=== PATIENT | female | born 1980 | race Two or more races ===

== ENCOUNTER 2025-04-23 02:29 | Inpatient (IN) | payer BC, OTHER ==
[~2025-04-23] VITALS: Ht 167.6 cm; Wt 83.7 kg
--- NOTE | 2025-04-23 02:48 | ED.PDOC ---
GI ASSESSMENT HPI Comments 44-year-old female complains of right-sided abdominal pain for the last 4 hours. Patient was drinking some alcohol and watching football. Patient has a history of cholecystectomy. The pain is dull and achy. No known modifying factors. Time Seen by MD: 02:38 Reviewed Notes: Nurses Notes, Multi Operation Machine Operator Notes Allergies: Coded Allergies: NO KNOWN ALLERGIES (Unverified , 04/23/25) Information Source: Patient, Emergency Med Personnel Mode of Arrival: EMS Duration: Since onset Quality: Aching Past Medical History PAST MEDICAL HISTORY: Denies Surgical History: Cholecystectomy Social History Smoker: Non-Smoker Alcohol: Heavy Drugs: Denies Drug Use Constitutional: reports: malaise Gastrointestinal: reports: abdominal pain, nausea All Other Systems: Reviewed and Negative Physical Exam Exam Comments Smells of alcohol General Appearance: Mild Distress HEENT: Normal ENT Inspection, Pharynx Normal, TMs Normal Neck: Full Range of Motion, Non-Tender, Normal, Normal Inspection Respiratory: Chest Non-Tender, Lungs Clear, No Accessory Muscle Use, No Respiratory Distress, Normal Breath Sounds Cardiovascular: No Edema, No JVD, No Murmur, No Gallop, Normal Peripheral Pulses, Regular Rate/Rhythm Breast Exam: Deferred Gastrointestinal: RLQ, RUQ, Tenderness Genitalia: Deferred Pelvic: Deferred Rectal: Deferred Extremities: No calf tenderness, Normal capillary refill, Normal inspection, Normal range of motion, Non-tender, No pedal edema Musculoskeletal : Apperance: Normal Neurologic: Alert, 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 Was a procedure done?: No GI differential Dx Differential Diagnosis: Appendicitis, Bowel Obstruction, Diverticular disease, Gastritis/PUD, Gastroenteritis, GI hemorrhage, Kidney Stone, Other X-Ray, Labs, Meds, VS Vital Signs Date Time Temp Pulse Resp B/P (MAP) Pulse Ox O2 Delivery O2 Flow Rate FiO2 04/23/25 02:29 97.6 84 18 124/74 100 97.6 Lab Test 04/23/25 03:18 Range/Units White Blood Count 9.0 4.4-10.8 10^3/uL Red Blood Count 4.28 4.0-5.20 10^6/uL Hemoglobin 8.2 L 12.2-16.2 g/dL Hematocrit 27.1 L 36.0-46.0 % Mean Corpuscular Volume 63.3 L 80.0-100.0 fL Mean Corpuscular Hemoglobin 19.1 L 28.0-32.0 pg Mean Corpuscular Hemoglobin Concent 30.2 L 32.0-36.0 g/dL Red Cell Distribution Width 17.8 H 11.8-14.3 % Platelet Count 272 140-450 10^3/uL Mean Platelet Volume 7.4 6.9-10.8 fL Neutrophils (%) (Auto) 81.2 H 37.0-80.0 % Lymphocytes (%) (Auto) 10.7 10.0-50.0 % Monocytes (%) (Auto) 5.1 0.0-12.0 % Eosinophils (%) (Auto) 2.3 0.0-7.0 % Basophils (%) (Auto) 0.7 0.0-2.0 % Neutrophils # (Auto) 7.3 1.6-8.6 10 ^3/uL Lymphocytes # (Auto) 1.0 0.4-5.4 10 ^3/uL Monocytes # (Auto) 0.5 0-1.3 10 ^3/uL Eosinophils # (Auto) 0.2 0-0.8 10 ^3/uL Basophils # (Auto) 0.1 0-0.2 10 ^3/uL Nucleated Red Blood Cells 0.0 % Sodium Level 145 136-145 mmol/L Potassium Level 3.5 3.5-5.1 mmol/L Chloride Level 112 H 98-107 mmol/L Carbon Dioxide Level 20 20-31 mmol/L Anion Gap 13 5-15 Blood Urea Nitrogen 5 L 9-23 mg/dL Creatinine 0.58 0.550-1.02 mg/dL Glomerular Filtration Rate Calc 115 >90 mL/min BUN/Creatinine Ratio 8.6 L 10.0-20.0 Serum Glucose 98 74-106 mg/dL Calcium Level 8.4 L 8.7-10.4 mg/dL Total Bilirubin 0.3 0.2-1.0 mg/dL Aspartate Amino Transferase (AST) 78 H 13-40 U/L Alanine Aminotransferase (ALT) 34 7-40 U/L Alkaline Phosphatase 73 46-116 U/L Total Protein 7.8 5.7-8.2 g/dL Albumin 4.4 3.2-4.8 g/dL Lipase 26 12-53 U/L Plasma/Serum Blood Alcohol 229.0 H <10 mg/dL [address] [address] Ph: [phone] DIAGNOSTIC IMAGING Diagnostic Imaging Report : [id number] Signed PATIENT: COLUMBA MALCOLM ACCT: [id number] UNIT: [id number] : 1980 LOC: ER ROOM / BED: / AGE / SEX: 44 / F ADM STATUS: REG ER SERVICE [id number] ORDERING PHYSICIAN: ALLYSON PRESTON MD PROCEDURE(s): ABPLIV - CT AB PEL WITH IV CON ONLY REASON: RLQ pain ORDER NUMBER(s): [id number], ACCESSION NUMBER(s): [id number] Exam: CT CT AB PEL WITH IV CON ONLY History: RLQ pain COMPARISON: ABPELC on DOS: 04/23/22 Technique: Multidetector spiral CT of the abdomen and pelvis was performed from lung bases to pubic symphysis. Intravenous contrast was administered during this examination. Portal venous imaging was obtained. Axial, coronal and sagittal multiplanar reformats were performed by the technologist on a separate workstation. Radiation Dose : 1. Abdomen/Pelvis: CTDIvol 22.07 mGy, DLP 1413.7 mGy*cm. CONTRAST: Type of contrast: Omnipaque 300 Contrast injected: 100 ml Findings: Lung Bases: No acute or significant lung base finding. Cardiomegaly. No pleural or pericardial effusion. Liver: The liver is normal in size. No focal lesions. Normal hepatic vascular enhancement. Gallbladder and Biliary Tree: Status post cholecystectomy. Spleen: Unremarkable Pancreas: The pancreas is normal in appearance without focal lesions or abnormal enhancement. Adrenal Glands: Unremarkable Kidneys: No hydronephrosis. Bladder: Unremarkable Bowel: Small sliding-type hiatal hernia. The stomach is grossly normal in appearance. Diverticulosis coli without CT evidence of acute diverticulitis. Retained colorectal stool. Small bowel and colon are otherwise normal in caliber and distribution. The appendix is normal. Ascites: Absent Lymphadenopathy: No mesenteric, retroperitoneal or periportal lymphadenopathy. Abdominal Wall and Mesentery: Unremarkable. Vasculature: The visualized abdominal aorta is normal in size and caliber. Abdominal and pelvic vessels demonstrate normal enhancement. Pelvic Organs: Complex appearing bilateral adnexal cystic near water attenuation structures measure 5.2 x 3.6 cm on the right and 4.1 x 2.7 cm on the left. Trace likely physiologic endometrial fluid. Musculoskeletal: No aggressive focal bony lesions, acute fractures or dislocation. IMPRESSION: 1. No acute abdominal or pelvic finding. 2. Complex appearing bilateral adnexal cystic near water attenuation structures measure 5.2 x 3.6 cm on the right and 4.1 x 2.7 cm on the left. Further evaluation with pelvic ultrasound is recommended. 3. Diverticulosis coli without CT evidence of acute diverticulitis. 4. Retained colorectal stool. Radiation optimization: All CT scans at this facility use at least one of these dose optimization techniques: automated exposure control mA and/or kV adjustment per patient size (includes targeted exams where dose is matched to clinical indication) or iterative reconstruction. ATED BY: ALIREZA SMITH MD DICTATED DATE/TIME: 04/23/25525 SIGNED BY: ALIREZA SMITH MD SIGNED DATE/TIME: 04/23/25525 CC: Time of 1ST Reevaluation: 02:47 Reevaluation 1ST: Unchanged Patient Education/Counseling: Diagnosis, Treatment Family Education/Counseling: No Family Present SEPSIS Sepsis Screen Physician Orders Urinalysis (04/23/25 02:41) Ct Ab Pel With Iv Con Only (04/23/25 02:41) Urine (04/23/25 ) Pelvic (04/23/25 05:49) Vital Signs Date Time Temp Pulse Resp B/P (MAP) Pulse Ox O2 Delivery O2 Flow Rate FiO2 04/23/25 02:29 97.6 84 18 124/74 100 97.6 Laboratory Tests Test 04/23/25 03:18 White Blood Count 9.0 10^3/uL (4.4-10.8) Departure 1 Departure Time of Disposition: 05:50 Impression: Primary Impression: Bilateral ovarian cysts Additional Impressions: Dysfunctional uterine bleeding Alcohol intoxication Symptomatic anemia Disposition: ADMITTED INPATIENT Admit to: Med Surg Condition: Guarded Comments 44-year-old female with abdominal pain. Patient has large bilateral ovarian cysts on CT. She is quite anemic. She is not actively bleeding. Patient admits to drinking alcohol in her alcohol level is high. I ordered IV fluids and pain medication. Patient will need to be admitted for further testing and possible OBGYN consultation. Critical Care Note Critical Care Time?: No Stability Stability form required: No Heart Score Heart Score: Heart Score Response (Comments) Value History N/A 0 EKG N/A 0 Age N/A 0 Risk Factors N/A 0 Troponin N/A 0 Total 0 I personally scribed for ALLYSON PRESTON MD ([email or web address]) on 04/23/25 at 05:33. Electronically submitted by Jorge Mendez ([email or web address]). ALLYSON PRESTON MD Apr 23, 2025 02:48
[2025-04-23 04:00] LABS: Alanine Aminotransferase 34 U/L (7-40); Albumin 4.4 g/dL (3.2-4.8); Alkaline Phosphatase 73 U/L (46-116); Anion Gap 13 (5-15); Carbon Dioxide 20 mmol/L (20-31); Glucose 98 mg/dL (74-106); Lipase 26 U/L (12-53); Sodium 145 mmol/L (136-145); Total Protein 7.8 g/dL (5.7-8.2)
[2025-04-23 04:04] LABS: Hemoglobin 8.2 g/dL (12.2-16.2); Nucleated Red Blood Cells % 0.0 %
[2025-04-23 04:06] LABS: Hematocrit 27.1 % (36.0-46.0); Mean Corpuscular Hemoglobin 19.1 pg (28.0-32.0); Mean Corpuscular Volume 63.3 fL (80.0-100.0)
[2025-04-23 04:11] LABS: BUN/Creatinine Ratio 8.6 (10.0-20.0)
[2025-04-23 04:13] LABS: Bilirubin, Total 0.3 mg/dL (0.2-1.0); Blood Urea Nitrogen 5 mg/dL (9-23); Calcium 8.4 mg/dL (8.7-10.4); Chloride 112 mmol/L (98-107); Potassium 3.5 mmol/L (3.5-5.1)
--- NOTE | 2025-04-23 05:29 | DVH ---
Exam: CT CT AB PEL WITH IV CON ONLY History: RLQ pain COMPARISON: ABPELC on DOS: 04/23/22 Technique: Multidetector spiral CT of the abdomen and pelvis was performed from lung bases to pubic s ymphysis. Intravenous contrast was administered during this examination. Portal venous imaging was o btained. Axial, coronal and sagittal multiplanar reformats were performed by the technologist on a [employer] workstation. Radiation Dose : 1. Abdomen/Pelvis: CTDIvol 22.07 mGy, DLP 1413.7 mGy*cm. CONTRAST: Type of contrast: Omnipaque 300 Contrast injected: 100 ml Findings: Lung Bases: No acute or significant lung base finding. Cardiomegaly. No pleural or pericardial effus ion. Liver: The liver is normal in size. No focal lesions. Normal hepatic vascular enhancement. Gallbladder and Biliary Tree: Status post cholecystectomy. Spleen: Unremarkable Pancreas: The pancreas is normal in appearance without focal lesions or abnormal enhancement. Adrenal Glands: Unremarkable Kidneys: No hydronephrosis. Bladder: Unremarkable Bowel: Small sliding-type hiatal hernia. The stomach is grossly normal in appearance. Diverticulosis coli without CT evidence of acute diverticulitis. Retained colorectal stool. Small bowel and colon a re otherwise normal in caliber and distribution. The appendix is normal. Ascites: Absent Lymphadenopathy: No mesenteric, retroperitoneal or periportal lymphadenopathy. Abdominal Wall and Mesentery: Unremarkable. Vasculature: The visualized abdominal aorta is normal in size and caliber. Abdominal and pelvic vess els demonstrate normal enhancement. Pelvic Organs: Complex appearing bilateral adnexal cystic near water attenuation structures measure 5 .2 x 3.6 cm on the right and 4.1 x 2.7 cm on the left. Trace likely physiologic endometrial fluid. Musculoskeletal: No aggressive focal bony lesions, acute fractures or dislocation. IMPRESSION: 1. No acute abdominal or pelvic finding. 2. Complex appearing bilateral adnexal cystic near water attenuation structures measure 5.2 x 3.6 cm on the right and 4.1 x 2.7 cm on the left. Further evaluation with pelvic ultrasound is recommended. 3. Diverticulosis coli without CT evidence of acute diverticulitis. 4. Retained colorectal stool. Radiation optimization: All CT scans at this facility use at least one of these dose optimization marc hniques: automated exposure control mA and/or kV adjustment per patient size (includes targeted exam s where dose is matched to clinical indication) or iterative reconstruction.
--- NOTE | 2025-04-23 08:02 | DVH ---
CLINICAL HISTORY: Abdominal pain. Ovarian cysts. COMPARISON:CT CT AB PEL WITH IV CON ONLY on DOS: 04/23/25 TECHNIQUE: Transabdominal grayscale sonographic imaging of the uterus and ovaries was performed, assi sted by color Doppler technique. Duplex Doppler ultrasound of both ovaries was also performed. FINDINGS: The uterus measures 14.1 x 5.1 x 7.6 cm. There is mildly heterogeneous echogenicity. Endome trial thickness measures 0.6 cm, within normal limits. Anechoic structure in the cervix measures up t o 1.4 cm, possible nabothian cyst. Right ovary measures 6.6 x 5.5 x 5.4 cm. Arterial and venous blood flow demonstrated. Mildly complex cystic structure in the right ovary measures up to 5.2 cm, possible complex ovarian cyst. Left ovary measures 4.8 x 2.3 x 4.3 cm. Arterial and venous blood flow demonstrated. Possible mildly complex cyst in the left ovary measuring up to 2.4 cm. IMPRESSION: 1. Suspected complex cystic structures in both ovaries, right greater than left, may be hemorrhagic c ysts. Correlate with clinical findings. Per consensus statement of the society of radiologists in ult rasound, for hemorrhagic cysts greater than 5 cm, short interval follow-up ultrasound in 6-12 weeks r ecommended to ensure resolution. 2. Likely nabothian cyst in the cervix.
[2025-04-23] MEDS ORDERED: ONDANSETRON HCL 4 MG/2 ML VIAL IV PRN (08:30)
[2025-04-23] MEDS ORDERED: DOCUSATE SOD 100 MG CAP PO PRN (08:30)
--- NOTE | 2025-04-23 08:44 | DVHHP2 ---
History of Present Illness Reason for Visit: Abdominal pain History of Present Illness Norma Yoon i s a 44-year-old female with no significant past medical history, who came to the hospital for abdominal pain. Patient states she has been experiencing intermittent abdominal pain for about 2 weeks. Last night she was watching football and drinking with her when the pain began. She states it became so severe she had her call EMS. She states she only drinks about once a week, but has noticed her pain is worse with drinking. Labs revealed patient is anemic. She states she has had to have blood transfusions in the past. She needed blood transfusions with her last 3 C-Sections, and when she had her cholecystectomy. Imaging showed bilateral ovarian cysts, possible hemorrhagic. Heme/Onc: Anemia NOS Past Surgical History: Cholecystectomy, (x 6) Smoke: No ALCOHOL: occassional Drugs: None Lives: with Family Domestic Violence: Neg Review of Systems Constitutional: No: Fever, Chills, Sweats, Weakness, Malaise, Other Eyes: No: Pain, Vision change, Conjunctivae inflammation, Eyelid inflammation, Other, Redness ENT: No: Ear pain, Ear discharge, Nose pain, Nose discharge, Nose congestion, Mouth pain, Mouth swelling, Throat pain, Throat swelling, Other Respiratory: No: Cough, Dry, Shortness of breath, SOB with excertion, Wheezing, Hemoptysis, Pleuritic Pain, Sputum, Wheezing, Other Cardiovascular: No: Chest Pain, Palpitations, Orthopnea, Paroxysmal Noc. Dyspnea, Edema, Lt Headedness, Other Gastrointestinal: Nausea, Abdominal Pain; No: Vomiting, Diarrhea, Constipation, Melena, Hematochezia, Other Genitourinary: No Dysuria, No Frequency, No Incontinence, No Hematuria, No Retention, No Other Musculoskeletal: No: other, neck pain, shoulder pain, arm pain, back pain, hand pain, leg pain, foot pain Skin: No: Rash, Lesions, Jaundice, Bruising, Other Neurological: No: Weakness, Numbness, Incoordination, Change in speech, Confusion, Seizures, Other Allergies: Coded Allergies: Codeine (Verified Allergy, Unknown, 04/23/25) Medications Current Medications Medications Dose Ordered Sig/Mariusz Route Start Time Stop Time Status Last Admin Dose Admin Acetaminophen/ Hydrocodone Bitart 1 tab Q4HP PRN PO 04/23/25 08:30 UNV Ondansetron HCl 4 mg Q4HP PRN IV 04/23/25 08:30 UNV Docusate Sodium 100 mg BIDPRN PRN PO 04/23/25 08:30 UNV Acetaminophen 650 mg Q6HP PRN PO 04/23/25 08:30 UNV Exam Vital Signs Vital Signs Date Time Temp Pulse Resp B/P (MAP) Pulse Ox O2 Delivery O2 Flow Rate FiO2 04/23/25 02:29 97.6 84 18 124/74 100 97.6 General Appearance: Alert, Oriented X3, Cooperative, moderate distress HEENT: Atraumatic, PERRLA Respiratory: Clear to auscultation, Normal air movement Cardiovascular: Regular rate, Normal S1, Normal S2 Abdominal: Normal bowel sounds, Soft, Other (tenderness on palpitation) Extremities: No clubbing, No cyanosis, No edema, Normal pulses Skin: No rashes, No breakdown, No significant lesion Neuro: Normal gait, Normal speech, Strength at 5/5 X4 ext, Normal tone Psych/Mental Status: Mental status NL, Mood NL Labs/Xrays Labs Test 04/23/25 03:18 Range/Units White Blood Count 9.0 4.4-10.8 10^3/uL Red Blood Count 4.28 4.0-5.20 10^6/uL Hemoglobin 8.2 L 12.2-16.2 g/dL Hematocrit 27.1 L 36.0-46.0 % Mean Corpuscular Volume 63.3 L 80.0-100.0 fL Mean Corpuscular Hemoglobin 19.1 L 28.0-32.0 pg Mean Corpuscular Hemoglobin Concent 30.2 L 32.0-36.0 g/dL Red Cell Distribution Width 17.8 H 11.8-14.3 % Platelet Count 272 140-450 10^3/uL Mean Platelet Volume 7.4 6.9-10.8 fL Neutrophils (%) (Auto) 81.2 H 37.0-80.0 % Lymphocytes (%) (Auto) 10.7 10.0-50.0 % Monocytes (%) (Auto) 5.1 0.0-12.0 % Eosinophils (%) (Auto) 2.3 0.0-7.0 % Basophils (%) (Auto) 0.7 0.0-2.0 % Neutrophils # (Auto) 7.3 1.6-8.6 10 ^3/uL Lymphocytes # (Auto) 1.0 0.4-5.4 10 ^3/uL Monocytes # (Auto) 0.5 0-1.3 10 ^3/uL Eosinophils # (Auto) 0.2 0-0.8 10 ^3/uL Basophils # (Auto) 0.1 0-0.2 10 ^3/uL Nucleated Red Blood Cells 0.0 % Sodium Level 145 136-145 mmol/L Potassium Level 3.5 3.5-5.1 mmol/L Chloride Level 112 H 98-107 mmol/L Carbon Dioxide Level 20 20-31 mmol/L Anion Gap 13 5-15 Blood Urea Nitrogen 5 L 9-23 mg/dL Creatinine 0.58 0.550-1.02 mg/dL Glomerular Filtration Rate Calc 115 >90 mL/min BUN/Creatinine Ratio 8.6 L 10.0-20.0 Serum Glucose 98 74-106 mg/dL Calcium Level 8.4 L 8.7-10.4 mg/dL Total Bilirubin 0.3 0.2-1.0 mg/dL Aspartate Amino Transferase (AST) 78 H 13-40 U/L Alanine Aminotransferase (ALT) 34 7-40 U/L Alkaline Phosphatase 73 46-116 U/L Total Protein 7.8 5.7-8.2 g/dL Albumin 4.4 3.2-4.8 g/dL Lipase 26 12-53 U/L Plasma/Serum Blood Alcohol 229.0 H <10 mg/dL Exam: CT CT AB PEL WITH IV CON ONLY Findings: Lung Bases: No acute or significant lung base finding. Cardiomegaly. No pleural or pericardial effusion. Liver: The liver is normal in size. No focal lesions. Normal hepatic vascular enhancement. Gallbladder and Biliary Tree: Status post cholecystectomy. Spleen: Unremarkable Pancreas: The pancreas is normal in appearance without focal lesions or abnormal enhancement. Adrenal Glands: Unremarkable Kidneys: No hydronephrosis. Bladder: Unremarkable Bowel: Small sliding-type hiatal hernia. The stomach is grossly normal in appearance. Diverticulosis coli without CT evidence of acute diverticulitis. R etained colorectal stool. Small bowel and colon are otherwise normal in caliber and distribution. The appendix is normal. Ascites: Absent Lymphadenopathy: No mesenteric, retroperitoneal or periportal lymphadenopathy. Abdominal Wall and Mesentery: Unremarkable. Vasculature: The visualized abdominal aorta is normal in size and caliber. Abdominal and pelvic vessels demonstrate normal enhancement. Pelvic Organs: Complex appearing bilateral adnexal cystic near water attenuation structures measure 5.2 x 3.6 cm on the right and 4.1 x 2.7 cm on the left. Trace likely physiologic endometrial fluid. Musculoskeletal: No aggressive focal bony lesions, acute fractures or dislocation. IMPRESSION: 1. No acute abdominal or pelvic finding. 2. Complex appearing bilateral adnexal cystic near water attenuation structures measure 5.2 x 3.6 cm on the right and 4.1 x 2.7 cm on the left. Further evaluation with pelvic ultrasound is recommended. 3. Diverticulosis coli without CT evidence of acute diverticulitis. 4. Retained colorectal stool. TECHNIQUE: Transabdominal grayscale sonographic imaging of the uterus and ovarie s was performed, assisted by color Doppler technique. Duplex Doppler ultrasound of both ovaries was also performed. FINDINGS: The uterus measures 14.1 x 5.1 x 7.6 cm. There is mildly heterogeneous echogenicity. Endometrial thickness measures 0.6 cm, within normal limits. Anechoic structure in the cervix measures up to 1.4 cm, possible nabothian cyst. Right ovary measures 6.6 x 5.5 x 5.4 cm. Arterial and venous blood flow demonstrated. Mildly complex cystic structure in the right ovary measures up to 5.2 cm, possible complex ovarian cyst. Left ovary measures 4.8 x 2.3 x 4.3 cm. Arterial and venous blood flow demon strated. Possible mildly complex cyst in the left ovary measuring up to 2.4 cm. IMPRESSION: 1. Suspected complex cystic structures in both ovaries, right greater than left, may be hemorrhagic cysts. Correlate with clinical findings. Per consensus state ment of the society of radiologists in ultrasound, for hemorrhagic cysts greater than 5 cm, short interval follow-up ultrasound in 6-12 weeks recommended to ensure resolution. 2. Likely nabothian cyst in the cervix. SEPSIS Sepsis Screen Date sepsis recognized/suspect: Apr 23, 2025 Time Sepsis recognized/suspect: 228 Recent Procedure: No On Antibiotic Therapy: No Respiratory Rate >20: No Heart Rate >90: No Temp<36 C (96.8 F) or >38.3 C: No SBP <90 or MAP <65 mmHG: No New Acute Mental Status Change: No Is the patient on CPAP, BIPAP,: No Physician Orders Urinalysis (04/23/25 02:41) Ct Ab Pel With Iv Con Only (04/23/25 02:41) Urine (04/23/25 ) Pelvic (04/23/25 05:49) Admit (04/23/25 08:29) Code Status (04/23/25 08:29) Hydrocodone-Acet 5/325mg Tab ([place] 5/32 (04/23/25 08:30) Ondansetron Hcl (Zofran) (04/23/25 08:30) Docusate Sodium Capsule (Colace Capsule) (04/23/25 08:30) Complete Blood Count (04/24/25 04:00) Comprehensive Metabolic Panel (04/24/25 04:00) Condition: Serious (04/23/25 08:29) Acetaminophen Tablet (Tylenol Tablet) (04/23/25 08:30) Regular Diet (04/23/25 Breakfast) Vital Signs Date Time Temp Pulse Resp B/P (MAP) Pulse Ox O2 Delivery O2 Flow Rate FiO2 04/23/25 02:29 97.6 84 18 124/74 100 97.6 Laboratory Tests Test 04/23/25 03:18 White Blood Count 9.0 10^3/uL (4.4-10.8) Assessment/Plan Assessment/Plan Assessment: Bilateral ovarian cysts, Anemia, ETOH abuse, Transaminitis, Plan: Admit to Med-Surg, HIDE EXAMINER consult, Iron panel, Ferritin, PT/PTT, Reticulocyte, Vit B12, PO supplements for possible ETOH withdrawal, Liver ultrasound, Manage/Monitor H&H closely, Start PO iron, Plan discussed with: Patient My Orders Orders - MARTELL BUTTERFIELDP Procedure Category Date Status Time Admit ADMIT 04/23/25 Transmitted 08:29 Code Status CODE 04/23/25 Transmitted 08:29 Hydrocodone-Acet PHA 04/23/25 Logged 5/325mg Tab ([place] 08:30 Ondansetron Hcl PHA 04/23/25 Logged (Zofran) 08:30 Docusate Sodium PHA 04/23/25 Logged Capsule (Colace 08:30 Complete Blood Count LAB 04/24/25 Verified 04:00 Comprehensive LAB 04/24/25 Verified Metabolic Panel 04:00 Condition: Serious ELIO 04/23/25 In Process 08:29 Acetaminophen Tablet PHA 04/23/25 Logged (Tylenol Tablet) 08:30 Regular Diet DIET 04/23/25 Transmitted Breakfast Date of Service: Apr 23, 2025 Billing Provider: MARTELL BUTTERFIELD Common Visit Codes: [id number] INP/OBS CARE (MOD) MARTELL BUTTERFIELD Apr 23, 2025 08:44
[2025-04-23] MEDS: HYDROcodone-ACET 5/325MG TAB PO PRN (09:54)
[2025-04-23] MEDS: SODIUM CHLORIDE 0.9% 1,000 ML IVB ONE (09:54)
[2025-04-23 09:59] VITALS: RESP 18; O2SAT 99
[2025-04-23 11:53] LABS: INR 1.07 (0.9-1.15); Partial Thromboplastin Time 23.1 SEC (24.5-34.5); Prothrombin Time 11.3 sec (9.3-11.8)
[2025-04-23 12:14] LABS: Iron 12.0 ug/dL (50-170)
[2025-04-23 12:15] LABS: Total Iron Binding Capacity 417.0 ug/dL (250-425)
--- NOTE | 2025-04-23 12:47 | DVH ---
INDICATION: Transaminitis TECHNIQUE: Multiple real-time sonographic images were obtained of the right upper quadrant. COMPARISON: US PELVIC on DOS: 04/23/25, GBUS on DOS: 04/22/22 FINDINGS: The liver demonstrates heterogenous echotexture without focal mass lesions. The liver measu res 14 cm. There is no intrahepatic or extrahepatic ductal dilatation. The common duct measures 0. 5 mm. Status post cholecystectomy. The right kidney measures 11 cm. The right kidney is normal in contour, size, and shape. The echog enicity is normal. There is no hydronephrosis. The pancreas is not well visualized due to overlying bowel gas. IMPRESSION: Hepatic steatosis
[2025-04-23 13:00] VITALS: BP 112/61; PULSE 84; RESP 12; TEMP 98.4; O2SAT 99
[2025-04-23] MEDS: SODIUM CHLORIDE 0.9% 1,000 ML IV ONE (13:26)
[2025-04-23] MEDS: MULTIPLE VITAMINS W/ MINERALS TAB PO ONE (13:31)
[2025-04-23] MEDS: FOLIC ACID 1 MG TAB PO ONE (13:31)
[2025-04-23] MEDS: THIAMINE HCL 100 MG TAB PO ONE (13:31)
[2025-04-23 17:00] VITALS: BP 117/59; PULSE 70; TEMP 98; O2SAT 98
[2025-04-23] MEDS: FERROUS SULFATE 325mg EC TAB PO SCH (18:33)
[2025-04-23 19:32] LABS: Urine Protein, UAD Negative (Negative)
[2025-04-24] VITALS (7 sets, daily range): BP systolic 104–123; BP diastolic 58–75; PULSE 57–66; RESP 16–20; TEMP 97.9–98.6; O2SAT 96–99
[2025-04-24 06:00] LABS: Nucleated Red Blood Cells % 0.0 %
[2025-04-24 06:03] LABS: Hematocrit 23.4 % (36.0-46.0); Mean Corpuscular Hemoglobin 19.0 pg (28.0-32.0); Mean Corpuscular Volume 64.0 fL (80.0-100.0)
[2025-04-24 06:10] LABS: Hemoglobin 7.0 g/dL (12.2-16.2)
[2025-04-24 06:23] LABS: Alanine Aminotransferase 21 U/L (7-40); Albumin 3.7 g/dL (3.2-4.8); Alkaline Phosphatase 66 U/L (46-116); Anion Gap 8 (5-15); BUN/Creatinine Ratio 13.0 (10.0-20.0); Bilirubin, Total 0.6 mg/dL (0.2-1.0); Carbon Dioxide 25 mmol/L (20-31); Glucose 93 mg/dL (74-106); Sodium 141 mmol/L (136-145); Total Protein 6.5 g/dL (5.7-8.2)
[2025-04-24 06:28] LABS: Blood Urea Nitrogen 7 mg/dL (9-23); Calcium 8.6 mg/dL (8.7-10.4); Chloride 108 mmol/L (98-107); Potassium 3.5 mmol/L (3.5-5.1)
[2025-04-24 08:23] LABS: Hemoglobin 7.1 g/dL (12.2-16.2)
[2025-04-24 08:25] LABS: Hematocrit 23.9 % (36.0-46.0)
[2025-04-24] MEDS: ACETAMINOPHEN 325 MG TAB PO PRN (08:46)
[2025-04-24] MEDS: MULTIPLE VITAMINS W/ MINERALS TAB PO SCH (10:54)
[2025-04-24] MEDS: DOCUSATE SOD 100 MG CAP PO SCH (10:54)
[2025-04-24] MEDS: FOLIC ACID 1 MG TAB PO SCH (10:54)
[2025-04-24] MEDS: THIAMINE HCL 100 MG TAB PO SCH (10:57)
--- NOTE | 2025-04-24 12:58 | DVHPN2 ---
Reviewed: H&P Changes from previous H/P or p: No Changes General: Per HPI Eyes: No Pain, No Vision change, No Conjunctivae inflammation, No Eyelid inflammation, No Other, No Redness ENT: No Ear pain, No Ear discharge, No Nose pain, No Nose discharge, No Nose congestion, No Mouth pain, No Mouth swelling, No Throat pain, No Throat swelling, No Other Cardiovascular: No Chest Pain, No Palpitations, No Orthopnea, No Paroxysmal Noc. Dyspnea, No Edema, No Lt Headedness, No Other Respiratory: No Cough, No Dry, No Shortness of breath, No SOB with excertion, No Wheezing, No Hemoptysis, No Pleuritic Pain, No Sputum, No Other Gastrointestinal: Nausea; No Vomiting; Abdominal Pain; No Diarrhea, No Constipation, No Melena, No Hematochezia, No Other Genitourinary: No Dysuria, No Frequency, No Incontinence, No Hematuria, No Retention, No Other Musculoskeletal: No other, No neck pain, No shoulder pain, No arm pain, No back pain, No hand pain, No leg pain, No foot pain Skin: No Rash, No Lesions, No Jaundice, No Bruising, No Other Objective Vitals Vital Signs Date Time Temp Pulse Resp B/P (MAP) Pulse Ox O2 Delivery O2 Flow Rate FiO2 04/24/25 09:00 98.6 57 16 107/70 (82) 97 98.6 04/23/25 16:10 Room Air* 0 21 Intake/Output Intake and Output 04/24/25 07:00 Intake Total 240 ml Balance 240 ml Intake Oral 240 ml # Voids 2 Exam General Appearance: Alert, Oriented X3, Cooperative, moderate distress HEENT: Atraumatic, PERRLA Respiratory: Clear to auscultation, Normal air movement Cardiovascular: Regular rate, Normal S1, Normal S2 Abdominal: Normal bowel sounds, Soft, Other (tenderness on palpitation) Extremities: No clubbing, No cyanosis, No edema, Normal pulses Skin: No rashes, No breakdown, No significant lesion Neuro: Normal gait, Normal speech, Strength at 5/5 X4 ext, Normal tone Psych/Mental Status: Mental status NL, Mood NL Medications Current Medications Medications Dose Ordered Sig/Mariusz Route Start Time Stop Time Status Last Admin Dose Admin Acetaminophen/ Hydrocodone Bitart 1 tab Q4HP PRN PO 04/23/25 08:30 04/23/25 09:54 1 TAB Ondansetron HCl 4 mg Q4HP PRN IV 04/23/25 08:30 Acetaminophen 650 mg Q6HP PRN PO 04/23/25 08:30 04/24/25 08:46 650 MG Thiamine HCl 100 mg DAILY PO 04/24/25 10:00 04/24/25 10:57 100 MG Folic Acid 1 mg DAILY PO 04/24/25 10:00 04/24/25 10:54 1 MG Multivitamins/ Minerals 1 tab DAILY PO 04/24/25 10:00 04/24/25 10:54 1 TAB Docusate Sodium 100 mg DAILY PO 04/24/25 10:00 04/24/25 10:54 100 MG Ferrous Sulfate 325 mg BIDWM PO 04/23/25 18:00 04/24/25 08:38 325 MG Laboratory Results Laboratory Tests 04/24/25 05:34 04/24/25 07:46 Chemistry Test 04/24/25 05:34 Albumin 3.7 g/dL (3.2-4.8) Calcium Level 8.6 mg/dL (8.7-10.4) L Total Protein 6.5 g/dL (5.7-8.2) LFT Test 04/24/25 05:34 Alanine Aminotransferase (ALT) 21 U/L (7-40) Alkaline Phosphatase 66 U/L (46-116) Aspartate Amino Transferase (AST) 20 U/L (13-40) Total Bilirubin 0.6 mg/dL (0.2-1.0) Urinalysis Test 04/23/25 18:02 Urine Color Light-yellow (Yellow) Urine Clarity Clear (Clear) Urine pH 6.5 (5.0-9.0) Urine Specific [place] 1.039 (1.001-1.035) Urine Protein Negative (Negative) Urine Ketones 1+ (Negative) H Urine Blood Negative /uL (Negative) Urine Nitrite Negative (Negative) Urine Bilirubin Negative (Negative) Urine Urobilinogen Normal mg/dL (Negative) Urine Leukocyte Esterase Negative /uL (Negative) Urine RBC 1 /hpf (0 - 4) Urine Microscopic WBC 1 /HPF (0-5) Urine Squamous Epithelial Cells Few /hpf (<5) Urine Bacteria None seen /hpf (None Seen) Urine Mucus Few (None Seen) Urine Glucose Normal mg/dL (Normal) Labs and/or images reviewed: Labs reviewed by me, Image(s) reviewed by me Assessment/Plan Assessment/Plan 44-year-old female with no significant past medical history, who came to the hospital for abdominal pain. Patient states she has been experiencing intermittent abdominal pain for about 2 weeks. Last night she was watching football and drinking with her when the pain began. She states it became so severe she had her call EMS. She states she only drinks about once a week, but has noticed her pain is worse with drinking. Labs revealed patient is anemic. She states she has had to have blood transfusions in the past. She needed blood transfusions with her last 3 C-Sections, and when she had her cholecystectomy. Imaging showed bilateral ovarian cysts, possible hemorrhagic. 04/24: CT with diverticulosis, and some complex bilateral adnexal cystic masses. The right Urology complex mass measuring 5 x 3.5, left measuring 4 x 3, , approximately., CT also with retained colorectal stool. Ultrasound repeated showing possible concern for hemorrhagic cysts. Gynecology is consulted. Continuing pain control prn analgesia. Anemia workup showing iron-deficiency anemia Patient has tenderness to adnexal region right more than left. For pain we will do Tylenol 1st line, second-line tramadol, 3rd line we will start celecoxib as we are not ruled out GI cause of bleed. We will get stool occult blood. Repeat hemoglobin q.12. Pending Gynecology final recommendations.. Diagnosis: Severe anemia , iron dysuria anemia, likely menses and/or ovarian cyst Acute blood loss anemia Bilateral ovarian cysts, Anemia, ETOH abuse, Transaminitis, Plan: - H&H q.12 Type and screen Gynecology consult Continue other home medications Iron supplementation Thiamine 100 mg daily, folic 1 mg daily Med surge Full code Plan discussed with: Patient Date of Service: Apr 24, 2025 Billing Provider: EDDA WRIGHT MD Common Visit Codes: [id number] INP/OBS CARE(HIGH) EDDA WRIGHT MD Apr 24, 2025 12:57
[2025-04-24] MEDS: CELECOXIB 100 MG CAP PO SCH (14:12)
[2025-04-24 14:20] LABS: Hematocrit 24.9 % (36.0-46.0); Hemoglobin 7.4 g/dL (12.2-16.2)
--- NOTE | 2025-04-24 16:40 | DVHINCON2 ---
Date of service: Apr 24, 2025 Referring Physician hospitalist Reason for Consultation ovarian cyst and aub History of Present Illness pt is [id number] FOR ABD PAIN .PT WAS DRINKING ETOH AND STARTED HAVING ABD PAIN.PT HAS FIBROID UTERUS AND ANEMIA FOR WHICH SHE HAS HAD NO CALL CENTER CONSULTANT CARE.HER LAST PAP WAS 10 YRS AGO .HER HGB WAS LOW AND SONO SHOWS BILAT CYST GREATER ON LEFT SIDE Past Medical History ANEMIA,ETOH INTOIXCATION Past Surgical History 6CS,CHOLEYCYSTECYOMY Family History NA Social History ETOH ABUSE Patient Family History: Cervical cancer Allergies: Coded Allergies: Codeine (Verified Allergy, Unknown, 04/23/25) Current Medications Current Medications Medications (Trade) Dose Ordered Sig/Mariusz Route PRN Reason Start Time Stop Time Status Last Admin Thiamine HCl 100 mg DAILY PO 04/24/25 10:00 04/24/25 10:57 Folic Acid 1 mg DAILY PO 04/24/25 10:00 04/24/25 10:54 Multivitamins/ Minerals (Mvi W/ Minerals Tablet) 1 tab DAILY PO 04/24/25 10:00 04/24/25 10:54 Docusate Sodium (Colace Capsule) 100 mg DAILY PO 04/24/25 10:00 04/24/25 10:54 Ferrous Sulfate 325 mg BIDWM PO 04/23/25 18:00 04/24/25 08:38 Tramadol HCl (Ultram) 50 mg Q4HP PRN PO MODERATE PAIN (4-6 PAIN SCALE) 04/24/25 13:30 Celecoxib (CeleBREX CAPSULE) 100 mg DAILY PO 04/24/25 13:30 04/24/25 14:12 Review of Systems Constitutional: no fever, chill, weight loss HEENT: no eye pain, no hearing loss, no oral lesion, no scleral icterus Heart: no chest pain, no chest pressure Lung: no cough, no dyspnea with exertion Abdomen: see HPI : no pain with urination, normal appearing urine Musculoskeletal: no joint pain, no muscle pain Neurological: no seizure, no loss of sensation, no weakness in extremities Pysch: no depression, no anxiety Derm: no rash, no jaundice Vital Signs Vital Signs Date Time Temp Pulse Resp B/P (MAP) Pulse Ox O2 Delivery O2 Flow Rate FiO2 04/24/25 13:00 97.9 66 16 123/75 (91) 96 97.9 04/23/25 16:10 Room Air* 0 21 Physical Exam HEENT: [PALE CONJUCTIVAE] NECK: [NL] CARDIAC: [RRR] PULMONARY: [CTA] ABDOMEN: [SOFT,NT] PELVIC- EXT GENT NL,VAG SOME BLEEDING,CX NL UTERUS 14WKS SIZE,ADENXA NT Labs/Diagnostic Data Labs Test 04/24/25 14:03 04/24/25 05:34 04/23/25 18:02 04/23/25 11:14 Range/Units Hemoglobin 7.4 L 12.2-16.2 g/dL Hematocrit 24.9 L 36.0-46.0 % White Blood Count 4.9 # 4.4-10.8 10^3/uL Red Blood Count 3.66 L 4.0-5.20 10^6/uL Mean Corpuscular Volume 64.0 L 80.0-100.0 fL Mean Corpuscular Hemoglobin 19.0 L 28.0-32.0 pg Mean Corpuscular Hemoglobin Concent 29.8 L 32.0-36.0 g/dL Red Cell Distribution Width 17.5 H 11.8-14.3 % Platelet Count 215 140-450 10^3/uL Mean Platelet Volume 7.0 6.9-10.8 fL Neutrophils (%) (Auto) 55.5 37.0-80.0 % Lymphocytes (%) (Auto) 29.3 10.0-50.0 % Monocytes (%) (Auto) 9.7 0.0-12.0 % Eosinophils (%) (Auto) 4.8 0.0-7.0 % Basophils (%) (Auto) 0.7 0.0-2.0 % Neutrophils # (Auto) 2.7 1.6-8.6 10 ^3/uL Lymphocytes # (Auto) 1.4 0.4-5.4 10 ^3/uL Monocytes # (Auto) 0.5 0-1.3 10 ^3/uL Eosinophils # (Auto) 0.2 0-0.8 10 ^3/uL Basophils # (Auto) 0 0-0.2 10 ^3/uL Nucleated Red Blood Cells 0.0 % Sodium Level 141 136-145 mmol/L Potassium Level 3.5 3.5-5.1 mmol/L Chloride Level 108 H 98-107 mmol/L Carbon Dioxide Level 25 20-31 mmol/L Anion Gap 8 5-15 Blood Urea Nitrogen 7 L 9-23 mg/dL Creatinine 0.54 L 0.550-1.02 mg/dL Glomerular Filtration Rate Calc 117 >90 mL/min BUN/Creatinine Ratio 13.0 10.0-20.0 Serum Glucose 93 74-106 mg/dL Calcium Level 8.6 L 8.7-10.4 mg/dL Total Bilirubin 0.6 0.2-1.0 mg/dL Aspartate Amino Transferase (AST) 20 13-40 U/L Alanine Aminotransferase (ALT) 21 7-40 U/L Alkaline Phosphatase 66 46-116 U/L Total Protein 6.5 5.7-8.2 g/dL Albumin 3.7 3.2-4.8 g/dL Vitamin B12 Level 343 211-911 pg/mL Urine Color Light-yellow Yellow Urine Clarity Clear Clear Urine pH 6.5 5.0-9.0 Urine Specific [place] 1.039 H 1.001-1.035 Urine Protein Negative Negative Urine Ketones 1+ H Negative Urine Blood Negative Negative /uL Urine Nitrite Negative Negative Urine Bilirubin Negative Negative Urine Urobilinogen Normal Negative mg/dL Urine Leukocyte Esterase Negative Negative /uL Urine RBC 1 0 - 4 /hpf Urine Microscopic WBC 1 0-5 /HPF Urine Squamous Epithelial Cells Few <5 /hpf Urine Bacteria None seen None Seen /hpf Urine Mucus Few None Seen Urine Glucose Normal Normal mg/dL Reticulocyte Count (auto) 0.67 0.5-1.5 % Prothrombin Time 11.3 9.3-11.8 sec Prothrombin Time INR 1.07 0.9-1.15 Activated Partial Thromboplast Time 23.1 L 24.5-34.5 SEC Iron Level 12 L 50-170 ug/dL Total Iron Binding Capacity 417 250-425 ug/dL Percent Iron Saturation 2.9 L 15-50 % Ferritin 4.0 L 10-291 ng/mL Amylase Level 63 30-118 U/L Test 04/23/25 03:18 Range/Units Lipase 26 12-53 U/L Plasma/Serum Blood Alcohol 229.0 H <10 mg/dL Primary Diagnosis ABD PAIN PROBABLY DUE TO ETOH USE OVARAIN CYST SYMPTOMATIC FIBROID UTERUS MENORRHAGIA WITH ANEMIA Plan TRANSFUSE NEEDED PT NEEDS TO FU WITH CALL CENTER CONSULTANT TO HAVE PAP AND EMB WILL SIGN OFF THANK YOU FOR THIS CONSULTATION Plan discussed with: Patient Visit Coding OBGYN Date of Service: Apr 24, 2025 Billing Provider: OLIVERIO BECKER DO MANAGER BUSINESS PROCESS Common Visit Codes: [id number]-[id number] OBS CARE (HIGH) MANAGER BUSINESS PROCESS Consultation Codes: [id number] CONSULT <110MIN OLIVERIO BECKER DO Apr 24, 2025 16:40
[2025-04-25 01:00] VITALS: BP 103/61; PULSE 63; RESP 19; TEMP 96.7; O2SAT 98
[2025-04-25 05:00] VITALS: BP 116/46; PULSE 53; RESP 18; TEMP 98; O2SAT 97
[2025-04-25 06:41] LABS: Hematocrit 24.8 % (36.0-46.0); Hemoglobin 7.4 g/dL (12.2-16.2); Mean Corpuscular Hemoglobin 19.1 pg (28.0-32.0); Mean Corpuscular Volume 64.3 fL (80.0-100.0); Nucleated Red Blood Cells % 0.1 %
[2025-04-25 06:55] LABS: Alanine Aminotransferase 16 U/L (7-40); Albumin 3.7 g/dL (3.2-4.8); Alkaline Phosphatase 71 U/L (46-116); Anion Gap 10 (5-15); BUN/Creatinine Ratio 13.6 (10.0-20.0); Carbon Dioxide 24 mmol/L (20-31); Potassium 3.9 mmol/L (3.5-5.1); Sodium 143 mmol/L (136-145); Total Protein 6.6 g/dL (5.7-8.2)
[2025-04-25 06:58] LABS: Bilirubin, Total 0.3 mg/dL (0.2-1.0); Blood Urea Nitrogen 8 mg/dL (9-23); Calcium 8.6 mg/dL (8.7-10.4); Chloride 109 mmol/L (98-107)
[2025-04-25 07:09] LABS: Glucose 107 mg/dL (74-106)
[2025-04-25 08:00] VITALS: PULSE 59; RESP 18; O2SAT 99
[2025-04-25 08:17] LABS: Anisocytosis Slight
[2025-04-25 08:52] VITALS: BP 119/79; PULSE 59; RESP 18; TEMP 98.3; O2SAT 99
--- NOTE | 2025-04-25 09:04 | DVHPN2 ---
Reviewed: H&P Changes from previous H/P or p: No Changes General: Per HPI Eyes: No Pain, No Vision change, No Conjunctivae inflammation, No Eyelid inflammation, No Other, No Redness ENT: No Ear pain, No Ear discharge, No Nose pain, No Nose discharge, No Nose congestion, No Mouth pain, No Mouth swelling, No Throat pain, No Throat swelling, No Other Cardiovascular: No Chest Pain, No Palpitations, No Orthopnea, No Paroxysmal Noc. Dyspnea, No Edema, No Lt Headedness, No Other Respiratory: No Cough, No Dry, No Shortness of breath, No SOB with excertion, No Wheezing, No Hemoptysis, No Pleuritic Pain, No Sputum, No Other Gastrointestinal: Nausea; No Vomiting; Abdominal Pain; No Diarrhea, No Constipation, No Melena, No Hematochezia, No Other Genitourinary: No Dysuria, No Frequency, No Incontinence, No Hematuria, No Retention, No Other Musculoskeletal: No other, No neck pain, No shoulder pain, No arm pain, No back pain, No hand pain, No leg pain, No foot pain Skin: No Rash, No Lesions, No Jaundice, No Bruising, No Other Objective Vitals Vital Signs Date Time Temp Pulse Resp B/P (MAP) Pulse Ox O2 Delivery O2 Flow Rate FiO2 04/25/25 08:52 98.3 59 18 119/79 (92) 99 98.3 04/24/25 20:00 Room Air* 0 21 Intake/Output Intake and Output 04/25/25 07:00 Intake Total 1225 ml Balance 1225 ml Intake Oral 1225 ml # Voids 6 Exam General Appearance: Alert, Oriented X3, Cooperative, moderate distress HEENT: Atraumatic, PERRLA Respiratory: Clear to auscultation, Normal air movement Cardiovascular: Regular rate, Normal S1, Normal S2 Abdominal: Normal bowel sounds, Soft, Other (tenderness on palpitation) Extremities: No clubbing, No cyanosis, No edema, Normal pulses Skin: No rashes, No breakdown, No significant lesion Neuro: Normal gait, Normal speech, Strength at 5/5 X4 ext, Normal tone Psych/Mental Status: Mental status NL, Mood NL Medications Current Medications Medications Dose Ordered Sig/Mariusz Route Start Time Stop Time Status Last Admin Dose Admin Ondansetron HCl 4 mg Q4HP PRN IV 04/23/25 08:30 Acetaminophen 650 mg Q6HP PRN PO 04/23/25 08:30 04/24/25 08:46 650 MG Thiamine HCl 100 mg DAILY PO 04/24/25 10:00 04/24/25 10:57 100 MG Folic Acid 1 mg DAILY PO 04/24/25 10:00 04/24/25 10:54 1 MG Multivitamins/ Minerals 1 tab DAILY PO 04/24/25 10:00 04/24/25 10:54 1 TAB Docusate Sodium 100 mg DAILY PO 04/24/25 10:00 04/24/25 10:54 100 MG Ferrous Sulfate 325 mg BIDWM PO 04/23/25 18:00 04/24/25 18:29 325 MG Tramadol HCl 50 mg Q4HP PRN PO 04/24/25 13:30 Celecoxib 100 mg DAILY PO 04/24/25 13:30 04/24/25 14:12 100 MG Laboratory Results Laboratory Tests 04/25/25 05:52 Chemistry Test 04/25/25 05:52 Albumin 3.7 g/dL (3.2-4.8) Calcium Level 8.6 mg/dL (8.7-10.4) L Total Protein 6.6 g/dL (5.7-8.2) LFT Test 04/25/25 05:52 Alanine Aminotransferase (ALT) 16 U/L (7-40) Alkaline Phosphatase 71 U/L (46-116) Aspartate Amino Transferase (AST) 16 U/L (13-40) Total Bilirubin 0.3 mg/dL (0.2-1.0) Urinalysis Test 04/23/25 18:02 Urine Color Light-yellow (Yellow) Urine Clarity Clear (Clear) Urine pH 6.5 (5.0-9.0) Urine Specific [place] 1.039 (1.001-1.035) Urine Protein Negative (Negative) Urine Ketones 1+ (Negative) H Urine Blood Negative /uL (Negative) Urine Nitrite Negative (Negative) Urine Bilirubin Negative (Negative) Urine Urobilinogen Normal mg/dL (Negative) Urine Leukocyte Esterase Negative /uL (Negative) Urine RBC 1 /hpf (0 - 4) Urine Microscopic WBC 1 /HPF (0-5) Urine Squamous Epithelial Cells Few /hpf (<5) Urine Bacteria None seen /hpf (None Seen) Urine Mucus Few (None Seen) Urine Glucose Normal mg/dL (Normal) Labs and/or images reviewed: Labs reviewed by me, Image(s) reviewed by me Assessment/Plan Assessment/Plan 44-year-old female with no significant past medical history, who came to the hospital for abdominal pain. Patient states she has been experiencing intermittent abdominal pain for about 2 weeks. Last night she was watching football and drinking with her when the pain began. She states it became so severe she had her call EMS. She states she only drinks about once a week, but has noticed her pain is worse with drinking. Labs revealed patient is anemic. She states she has had to have blood transfusions in the past. She needed blood transfusions with her last 3 C-Sections, and when she had her cholecystectomy. Imaging showed bilateral ovarian cysts, possible hemorrhagic. 04/24: CT with diverticulosis, and some complex bilateral adnexal cystic masses. The right Urology complex mass measuring 5 x 3.5, left measuring 4 x 3, , approximately., CT also with retained colorectal stool. Ultrasound repeated showing possible concern for hemorrhagic cysts. Gynecology is consulted. Continuing pain control prn analgesia. Anemia workup showing iron-deficiency anemia Patient has tenderness to adnexal region right more than left. For pain we will do Tylenol 1st line, second-line tramadol, 3rd line we will start celecoxib as we are not ruled out GI cause of bleed. We will get stool occult blood. Repeat hemoglobin q.12. Pending Gynecology final recommendations.. 04/25: Having right upper quadrant pain, we will get right upper quadrant ultrasound. We will start antacid Protonix 40 daily, Carafate, laxatives as patient is constipated, hemoglobin stable, perfusing well, we will need outpatient follow up for gynecology through PCP. Diagnosis: Severe anemia , iron dysuria anemia, likely menses and/or ovarian cyst Acute blood loss anemia Bilateral ovarian cysts, Anemia, ETOH abuse, Transaminitis, Plan: - H&H q.12 Type and screen Gynecology consult Continue other home medications Iron supplementation Thiamine 100 mg daily, folic 1 mg daily Med surge Full code Plan discussed with: Patient My Orders Orders - EDDA WRIGHT MD Procedure Category Date Status Time Consult Care CONS 04/24/25 Transmitted Coordinator Tramadol Hcl (Ultram) PHA 04/24/25 In Process 13:30 Celecoxib Capsule PHA 04/24/25 In Process (Celebrex Capsule) 13:30 Date of Service: Apr 25, 2025 Billing Provider: EDDA WRIGHT MD Common Visit Codes: [id number] INP/OBS CARE(HIGH) EDDA WRIGHT MD Apr 25, 2025 09:04
[2025-04-25] MEDS ORDERED: SUCRALFATE 1 GM/10 ML ORAL SUSP GT SCH (10:15)
[2025-04-25] MEDS ORDERED: SUCR1TAB31 PO (10:32)
[2025-04-25] MEDS ORDERED: CEL100T PO (10:32)
[2025-04-25] MEDS ORDERED: PANT40TA2 PO (10:32)
--- NOTE | 2025-04-25 10:37 | DVHDS2 ---
Discharge Summary Date of Admission Apr 23, 2025 at 08:29 Date of Discharge: Apr 25, 2025 Labs/Diagnostic Data: Laboratory Results Test 04/25/25 05:52 04/24/25 18:28 04/24/25 05:34 04/23/25 18:02 White Blood Count 6.4 10^3/uL (4.4-10.8) Red Blood Count 3.86 10^6/uL (4.0-5.20) Hemoglobin 7.4 g/dL (12.2-16.2) Hematocrit 24.8 % (36.0-46.0) Mean Corpuscular Volume 64.3 fL (80.0-100.0) Mean Corpuscular Hemoglobin 19.1 pg (28.0-32.0) Mean Corpuscular Hemoglobin Concent 29.6 g/dL (32.0-36.0) Red Cell Distribution Width 17.8 % (11.8-14.3) Platelet Count 215 10^3/uL (140-450) Mean Platelet Volume 7.6 fL (6.9-10.8) Neutrophils (%) (Auto) 62.2 % (37.0-80.0) Lymphocytes (%) (Auto) 23.0 % (10.0-50.0) Monocytes (%) (Auto) 9.6 % (0.0-12.0) Eosinophils (%) (Auto) 4.5 % (0.0-7.0) Basophils (%) (Auto) 0.7 % (0.0-2.0) Neutrophils # (Auto) 4.0 10 ^3/uL (1.6-8.6) Lymphocytes # (Auto) 1.5 10 ^3/uL (0.4-5.4) Monocytes # (Auto) 0.6 10 ^3/uL (0-1.3) Eosinophils # (Auto) 0.3 10 ^3/uL (0-0.8) Basophils # (Auto) 0 10 ^3/uL (0-0.2) Nucleated Red Blood Cells 0.1 % Platelet Estimate Adequate Hypochromasia (manual) Marked Anisocytosis (manual) Slight Microcytosis Marked Sodium Level 143 mmol/L (136-145) Potassium Level 3.9 mmol/L (3.5-5.1) Chloride Level 109 mmol/L (98-107) Carbon Dioxide Level 24 mmol/L (20-31) Anion Gap 10 (5-15) Blood Urea Nitrogen 8 mg/dL (9-23) Creatinine 0.59 mg/dL (0.550-1.02) Glomerular Filtration Rate Calc 115 mL/min (>90) BUN/Creatinine Ratio 13.6 (10.0-20.0) Serum Glucose 107 mg/dL (74-106) Calcium Level 8.6 mg/dL (8.7-10.4) Total Bilirubin 0.3 mg/dL (0.2-1.0) Aspartate Amino Transferase (AST) 16 U/L (13-40) Alanine Aminotransferase (ALT) 16 U/L (7-40) Alkaline Phosphatase 71 U/L (46-116) Total Protein 6.6 g/dL (5.7-8.2) Albumin 3.7 g/dL (3.2-4.8) Stool Occult Blood Negative (Negative) Stool Occult Blood Sample #3 (Negative) Vitamin B12 Level 343 pg/mL (211-911) Urine Color Light-yellow (Yellow) Urine Clarity Clear (Clear) Urine pH 6.5 (5.0-9.0) Urine Specific [place] 1.039 (1.001-1.035) Urine Protein Negative (Negative) Urine Ketones 1+ (Negative) Urine Blood Negative /uL (Negative) Urine Nitrite Negative (Negative) Urine Bilirubin Negative (Negative) Urine Urobilinogen Normal mg/dL (Negative) Urine Leukocyte Esterase Negative /uL (Negative) Urine RBC 1 /hpf (0 - 4) Urine Microscopic WBC 1 /HPF (0-5) Urine Squamous Epithelial Cells Few /hpf (<5) Urine Bacteria None seen /hpf (None Seen) Urine Mucus Few (None Seen) Urine Glucose Normal mg/dL (Normal) Test 04/23/25 11:14 04/23/25 03:18 Reticulocyte Count (auto) 0.67 % (0.5-1.5) Prothrombin Time 11.3 sec (9.3-11.8) Prothrombin Time INR 1.07 (0.9-1.15) Activated Partial Thromboplast Time 23.1 SEC (24.5-34.5) Iron Level 12 ug/dL (50-170) Total Iron Binding Capacity 417 ug/dL (250-425) Percent Iron Saturation 2.9 % (15-50) Ferritin 4.0 ng/mL (10-291) Amylase Level 63 U/L (30-118) Lipase 26 U/L (12-53) Plasma/Serum Blood Alcohol 229.0 mg/dL (<10) Other Laboratory Tests 04/25/25 05:52 Brief Hx & Hospital Course: 44-year-old female with no significant past medical history, who came to the hospital for abdominal pain. Patient states she has been experiencing intermittent abdominal pain for about 2 weeks. Last night she was watching football and drinking with her when the pain began. She states it became so severe she had her call EMS. She states she only drinks about once a week, but has noticed her pain is worse with drinking. Labs revealed patient is anemic. She states she has had to have blood transfusions in the past. She needed blood transfusions with her last 3 C-Sections, and when she had her cholecystectomy. Imaging showed bilateral ovarian cysts, possible hemorrhagic. 04/24: CT with diverticulosis, and some complex bilateral adnexal cystic masses. The right Urology complex mass measuring 5 x 3.5, left measuring 4 x 3, , approximately., CT also with retained colorectal stool. Ultrasound repeated showing possible concern for hemorrhagic cysts. Gynecology is consulted. Continuing pain control prn analgesia. Anemia workup showing iron-deficiency anemia Patient has tenderness to adnexal region right more than left. For pain we will do Tylenol 1st line, second-line tramadol, 3rd line we will start celecoxib as we are not ruled out GI cause of bleed. We will get stool occult blood. Repeat hemoglobin q.12. Pending Gynecology final recommendations.. 04/25: Having right upper quadrant pain, we will get right upper quadrant ultrasound. We will start antacid Protonix 40 daily, Carafate, laxatives as patient is constipated, hemoglobin stable, perfusing well, we will need outpatient follow up for gynecology through PCP. -ultrasound was already done, showed hepatic steatosis, no CBD dilation. Pain is likely PUD/gastritis, needs empiric Protonix treatment. Diagnosis: Severe anemia , iron dysuria anemia, likely menorrhagia Acute blood loss anemia, resolving, without blood transfusion Acute gastritis PUD possible Bilateral ovarian cysts, ETOH abuse, Transaminitis, Plan: - Take celecoxib for 1 week, 100 mg capsule twice daily, 7 days - Take Protonix 40 mg daily 1 month and take Carafate 1 g tablet twice daily for 1 month -continue other home medications not mentioned above. - Follow up with PCP, get urgent referral for Gynecology. Recommend PCP repeat hemoglobin level. If abdominal pain does not improve may need GI referral for EGD. Condition at Discharge: Fair Final Diagnosis/Problems List Severe anemia , iron dysuria anemia, likely menorrhagia Acute blood loss anemia, resolving, without blood transfusion Acute gastritis PUD possible Bilateral ovarian cysts, ETOH abuse, Transaminitis, Discharge Disposition: Home Discharge Statement: "Patient was advised to return to the ER or call 911 if any headaches, dizziness, shortness of breath, chest pain, abdominal pain, bleeding, fevers, or worsening of medical condition. Patient was counseled about treatment plan, medications, possible side effects, patientverbalized understanding. All questions were answered to the best of my ability. This discharge took greater then 30 minutes in planning, reviewing documentation, counseling the patient, and discussing with other team members." ASSESSMENT ASSESSMENT Assessment Date of Service: Apr 25, 2025 Billing Provider: EDDA WRIGHT MD Common Visit Codes: [id number] DISCH DAY >30min EDDA WRIGHT MD Apr 25, 2025 10:37
[2025-04-25 11:34] VITALS: BP 119/79; PULSE 59; RESP 18; TEMP 98.3; O2SAT 99
[2025-04-25] MEDS: PANTOPRAZOLE 40 MG/10 ML VIAL INJ IV SCH (11:40)
[2025-04-25] MEDS: SUCRALFATE 1 GM/10 ML ORAL SUSP PO SCH (11:40)
[2025-04-25 12:30] VITALS: BP 124/79; PULSE 63; RESP 16; TEMP 98.8; O2SAT 97
== END 2025-04-25 12:40 | disposition home or self-care (01) | DRG 392 ==
LOC: ER 02:29 → EDBD 02:29 → OVERFLOW 08:29 → EAST 04-24 01:55
PROVIDERS: ADMIT Student in an Organized Health Care Education/Training Program; ATTEND Student in an Organized Health Care Education/Training Program
DX: K29.00 Acute gastritis without bleeding (principal); D62 Acute posthemorrhagic anemia; N83.201 Unspecified ovarian cyst, right side; N83.202 Unspecified ovarian cyst, left side; N92.0 Excessive and frequent menstruation with regular cycle; K27.9 Peptic ulcer, site unspecified, unspecified as acute or chronic, without hemorrhage or perforation; D50.9 Iron deficiency anemia, unspecified; F10.129 Alcohol abuse with intoxication, unspecified; Y90.9 Presence of alcohol in blood, level not specified; K57.30 Diverticulosis of large intestine without perforation or abscess without bleeding; K59.00 Constipation, unspecified; N93.8 Other specified abnormal uterine and vaginal bleeding; K76.0 Fatty (change of) liver, not elsewhere classified; Z85.41 Personal history of malignant neoplasm of cervix uteri; Z88.5 Allergy status to narcotic agent; Z90.49 Acquired absence of other specified parts of digestive tract; Z79.899 Other long term (current) drug therapy
CPT/HCPCS: 36415; 74177; 76705; 76856; 80053; 80320; 81001; 82150; 82270; 82607; 82728; 83540; 83550; 83690; 85014; 85018; 85025; 85045; 85610; 85730; 86850; 86900; 86901; G0378; J2470